=== PATIENT | female | born 1970 | race Caucasian/White ===

== ENCOUNTER 2016-07-17 10:47 | Emergency (ER) | payer OTHER ==
[2016-07-17 10:56] VITALS: RESP 18
--- NOTE | 2016-07-17 11:45 | ED ---
General Adult HPI - General Chief complaint: Recheck/Abnormal Lab/Rx Stated complaint: HEMMOROID Time Seen by Provider: 07/17/16 11:24 Source: patient Mode of arrival: ambulatory Limitations: no limitations - History of Present Illness Initial comments: 46 no did not patient presents to emergency department stay for evaluation of a hemorrhoid. Patient was seen at her primary care physician's office this morning on sent over for concerns of a thrombosed external hemorrhoid. Patient states that she started with perianal pain Wednesday. Patient states the pain is worsening since. Patient does have a history of hemorrhoids but has never had any issues with pain, or thrombosed hemorrhoid before. Patient has been using aloe, doing sitz baths, and taking Excedrin without relief of symptoms. She denies any inciting events, straining to go to the bathroom, or lifting heavy objects. Patient denies any constipation, diarrhea, abdominal pain , significant bleeding, fever, or chills. Patient denies any chest pain, shortness of breath, back pain, weakness, dizziness, dysuria, hematuria, urinary frequency, urinary urgency. - Related Data Home Medications Medication Instructions Recorded Confirmed [id number] [phone] 250 mg PO DAILY PRN 07/17/16 07/17/16 [Excedrin] Dextroamphetamine/Amphetamine 20 mg PO BID 07/17/16 07/17/16 [Adderall] Previous Rx's Medication Instructions Recorded Hydrocodone/Acetaminophen [Goshen 1 tab PO Q6HR PRN #20 tab 07/17/16 5-325] Hydrocortisone [Anusol-Hc] 1 applic RECTAL TID #30 gm 07/17/16 Lidocaine 5% Oint [Xylocaine 5% 1 applic TOPICAL TID #30 gm 07/17/16 Oint] Allergies Allergy/AdvReac Type Severity Reaction Status Date / Time codeine AdvReac Nausea & Verified 07/17/16 11:47 Vomiting tramadol AdvReac Nausea & Verified 07/17/16 11:47 Vomiting Review of Systems ROS Statement: Those systems with pertinent positive or pertinent negative responses have been documented in the HPI. ROS Other: All systems not noted in ROS Statement are negative. Past Medical History Past Medical History: No Reported History History of Any Multi-Drug Resistant Organisms: None Reported Past Surgical History: Tubal Ligation, Uterine Ablation Past Psychological History: Bipolar Smoking Status: Never smoker Past Alcohol Use History: Rare Past Drug Use History: None Reported General Exam Limitations: no limitations General appearance: alert, in no apparent distress Eye exam: Present: normal appearance, PERRL, EOMI. Absent: scleral icterus, conjunctival injection, periorbital swelling ENT exam: Present: normal exam, mucous membranes moist Neck exam: Present: normal inspection. Absent: tenderness, meningismus, lymphadenopathy Respiratory exam: Present: normal lung sounds bilaterally. Absent: respiratory distress, wheezes, rales, rhonchi, stridor Cardiovascular Exam: Present: regular rate, normal rhythm, normal heart sounds. Absent: systolic murmur, diastolic murmur, rubs, gallop, clicks GI/Abdominal exam: Present: soft, normal bowel sounds. Absent: distended, tenderness, guarding, rebound, rigid Rectal exam: Present: normal rectal tone, hemorrhoids (External, pink with areas of dark purple, roughly 1 cm diameter at 12:00), tenderness. Absent: normal inspection, decreased rectal tone Extremities exam: Present: normal inspection, full ROM, normal capillary refill. Absent: tenderness, pedal edema, joint swelling, calf tenderness Back exam: Present: normal inspection Neurological exam: Present: alert, oriented X3, CN II-XII intact Psychiatric exam: Present: normal affect, normal mood Skin exam: Present: warm, dry, intact, normal color. Absent: rash Course Vital Signs 07/17/16 10:52 Temperature 98.2 F Pulse Rate 84 Respiratory 18 Rate Blood Pressure 158/71 O2 Sat by Pulse 100 Oximetry Medical Decision Making - Medical Decision Making Present health in the patient presents to emergency department today for evaluation of a hemorrhoid after pain sent in by her primary care physician. Physical exam reveals an external partially thrombosed hemorrhoid. Extensive education regarding thrombosed hemorrhoids was given.. Patient will receive lidocaine and dermoplasty spray here in emergency department, as well as oral Goshen for pain control. Patient will be discharged with prescriptions for Anusol, lidocaine ointment, and Goshen for pain control. Patient educated regarding use of [id number]-buk-[id number] options such as Tucks pads and Recticare. He is instructed to follow up with general surgeon if symptoms don't start to improve over the next one to 2 days. Patient and check and to return for any new, worsening, or concerning symptoms. Patient verbalizes understanding and agrees with this plan. Disposition Clinical Impression: External thrombosed hemorrhoids Disposition: HOME SELF-CARE Condition: Stable Instructions: Thrombosed Hemorrhoid (ED) Additional Instructions: He denies [id number] product such as Tucks pads, Recticare. Continue doing sitz baths. Utilize lidocaine jelly and dermoblast spray as needed for discomfort. Take oral pain medications as needed for discomfort. Follow-up with general surgeon if symptoms do not start to improve in 1-2 days. Follow- up with primary care physician in one to 2 days for recheck. Prescriptions: Hydrocodone/Acetaminophen [Goshen 5-325] 1 tab PO Q6HR PRN #20 tab PRN Reason: Pain Hydrocortisone [Anusol-Hc] 1 applic RECTAL TID #30 gm Lidocaine 5% Oint [Xylocaine 5% Oint] 1 applic TOPICAL TID #30 gm Referrals: Bella Whiteside III, MD [Primary Care Provider] - 1-2 days Reggie Warner MD [STAFF PHYSICIAN] - 1-2 days Time of Disposition: 11:58 Decision Time: 12:01
[2016-07-17] MEDS ORDERED: HYDROcodone/APAP 5-325MG 1 EACH TAB PO STA (11:53)
[2016-07-17] MEDS ORDERED: BENZOCAINE/MENTHOL SPRAY 1 GM/SPRAY AEROSOL TOPICAL STA (11:54)
[2016-07-17] MEDS ORDERED: LIDOCAINE VISCOUS 2% 15 ML CUP MUCOUS MEM ONE (11:54)
[2016-07-17 12:31] VITALS: BP 136/84; PULSE 78; TEMP 97.8
== END 2016-07-17 12:31 | disposition home or self-care (01) ==
LOC: EC 10:47
DX: K64.5 Perianal venous thrombosis (principal); F31.9 Bipolar disorder, unspecified; Z88.5 Allergy status to narcotic agent; Z88.6 Allergy status to analgesic agent; Z79.899 Other long term (current) drug therapy
CPT/HCPCS: 99283

== ENCOUNTER 2018-12-31 16:01 | Inpatient (IN) | payer OTHER ==
--- NOTE | 2018-12-31 16:33 | ED ---
General Adult HPI - General Chief complaint: Recheck/Abnormal Lab/Rx Stated complaint: abn labs Time Seen by Provider: 12/31/18 16:10 Source: patient, RN notes reviewed Mode of arrival: ambulatory Limitations: no limitations - History of Present Illness Initial comments: Patient is a pleasant 48-year-old female presenting to the emergency Department with complaints of concerns regarding anemia. Patient states over the past few weeks she has had fatigue and exertional dyspnea. Patient did follow-up with her doctor and had blood work done. Hemoglobin returned at 6.7. Call was received from Dr. Whiteside regarding this. He did advise patient come to the emergency department. He does request admission and transfusion. Patient denies any black tarry stools. No bleeding. No vomiting. - Related Data Home Medications Medication Instructions Recorded Confirmed Dextroamphetamine/Amphetamine 20 mg PO DAILY 07/17/16 12/31/18 [Adderall] Cranberry Fruit Concentrate [Azo 250 mg PO DAILY 12/31/18 12/31/18 Cranberry] Dextroamphetamine/Amphetamine 20 mg PO DAILY@1500 PRN 12/31/18 12/31/18 [Adderall] FLUoxetine HCL [PROzac] 40 mg PO DAILY 12/31/18 12/31/18 Omeprazole 20 mg PO DAILY 12/31/18 12/31/18 lamoTRIgine [LaMICtal] 100 mg PO DAILY 12/31/18 12/31/18 Allergies Allergy/AdvReac Type Severity Reaction Status Date / Time codeine AdvReac Nausea & Verified 12/31/18 16:43 Vomiting tramadol AdvReac Nausea & Verified 12/31/18 16:43 Vomiting narcotis AdvReac Nausea & Uncoded 12/31/18 16:43 Vomiting Review of Systems ROS Statement: Those systems with pertinent positive or pertinent negative responses have been documented in the HPI. ROS Other: All systems not noted in ROS Statement are negative. Constitutional: Denies: fever Eyes: Denies: eye pain ENT: Denies: ear pain Respiratory: Denies: cough Cardiovascular: Denies: chest pain Endocrine: Denies: fatigue Gastrointestinal: Denies: abdominal pain, diarrhea, melena, hematochezia Genitourinary: Denies: dysuria Musculoskeletal: Denies: back pain Skin: Denies: rash Neurological: Denies: weakness Past Medical History Past Medical History: No Reported History History of Any Multi-Drug Resistant Organisms: None Reported Past Surgical History: Tubal Ligation, Uterine Ablation Past Psychological History: Bipolar Smoking Status: Never smoker Past Alcohol Use History: Rare Past Drug Use History: None Reported General Exam Limitations: no limitations General appearance: alert, in no apparent distress Head exam: Present: atraumatic Eye exam: Present: normal appearance, PERRL ENT exam: Present: normal oropharynx Neck exam: Present: normal inspection Respiratory exam: Present: normal lung sounds bilaterally Cardiovascular Exam: Present: regular rate, normal rhythm GI/Abdominal exam: Present: soft. Absent: tenderness Extremities exam: Present: normal inspection Neurological exam: Present: alert Psychiatric exam: Present: normal affect, normal mood Skin exam: Present: pallor Course Vital Signs 12/31/18 16:10 Temperature 98.1 F Pulse Rate 84 Respiratory 18 Rate Blood Pressure 127/76 O2 Sat by Pulse 100 Oximetry Medical Decision Making - Medical Decision Making Patient is aware of diagnosis and plan. Case was discussed with Dr. Ordaz, covering for Dr. Whiteside, who will admit. - Lab Data Result diagrams: 12/31/18 16:30 12/31/18 16:30 Lab Results 12/31/18 12/31/18 12/31/18 Range/Units 16:30 16:30 16:30 WBC 4.7 (3.8-10.6) k/uL RBC 3.17 L (3.80-5.40) m/uL Hgb 6.7 L* (11.4-16.0) gm/dL Hct 25.3 L (34.0-46.0) % MCV 79.7 L (80.0-100.0) fL MCH 21.3 L (25.0-35.0) pg MCHC 26.7 L (31.0-37.0) g/dL RDW 21.0 H (11.5-15.5) % Plt Count 542 H (150-450) k/uL Neutrophils % 59 % Lymphocytes % 29 % Monocytes % 4 % Eosinophils % 4 % Basophils % 1 % Neutrophils # 2.8 (1.3-7.7) k/uL Lymphocytes # 1.4 (1.0-4.8) k/uL Monocytes # 0.2 (0-1.0) k/uL Eosinophils # 0.2 (0-0.7) k/uL Basophils # 0.1 (0-0.2) k/uL Hypochromasia Marked Poikilocytosis Moderate Anisocytosis Moderate Microcytosis Slight PT 10.3 (9.0-12.0) sec INR 1.0 (<1.2) APTT 23.7 (22.0-30.0) sec Sodium 141 (137-145) mmol/L Potassium 4.1 (3.5-5.1) mmol/L Chloride 109 H (98-107) mmol/L Carbon Dioxide 21 L (22-30) mmol/L Anion Gap 11 mmol/L BUN 16 (7-17) mg/dL Creatinine 0.93 (0.52-1.04) mg/dL Est GFR (CKD-EPI)AfAm 84 (>60 ml/min/1.73 sqM) Est GFR (CKD-EPI)NonAf 73 (>60 ml/min/1.73 sqM) Glucose 112 H (74-99) mg/dL Calcium 9.5 (8.4-10.2) mg/dL Total Bilirubin 0.2 (0.2-1.3) mg/dL AST 21 (14-36) U/L ALT 17 (9-52) U/L Alkaline Phosphatase 57 (38-126) U/L Total Protein 7.1 (6.3-8.2) g/dL Albumin 4.3 (3.5-5.0) g/dL Blood Type Blood Type Confirm Blood Type Recheck Bld Type Recheck Status Antibody Screen Spec Expiration Date 12/31/18 12/31/18 Range/Units 16:30 16:32 WBC (3.8-10.6) k/uL RBC (3.80-5.40) m/uL Hgb (11.4-16.0) gm/dL Hct (34.0-46.0) % MCV (80.0-100.0) fL MCH (25.0-35.0) pg MCHC (31.0-37.0) g/dL RDW (11.5-15.5) % Plt Count (150-450) k/uL Neutrophils % % Lymphocytes % % Monocytes % % Eosinophils % % Basophils % % Neutrophils # (1.3-7.7) k/uL Lymphocytes # (1.0-4.8) k/uL Monocytes # (0-1.0) k/uL Eosinophils # (0-0.7) k/uL Basophils # (0-0.2) k/uL Hypochromasia Poikilocytosis Anisocytosis Microcytosis PT (9.0-12.0) sec INR (<1.2) APTT (22.0-30.0) sec Sodium (137-145) mmol/L Potassium (3.5-5.1) mmol/L Chloride (98-107) mmol/L Carbon Dioxide (22-30) mmol/L Anion Gap mmol/L BUN (7-17) mg/dL Creatinine (0.52-1.04) mg/dL Est GFR (CKD-EPI)AfAm (>60 ml/min/1.73 sqM) Est GFR (CKD-EPI)NonAf (>60 ml/min/1.73 sqM) Glucose (74-99) mg/dL Calcium (8.4-10.2) mg/dL Total Bilirubin (0.2-1.3) mg/dL AST (14-36) U/L ALT (9-52) U/L Alkaline Phosphatase (38-126) U/L Total Protein (6.3-8.2) g/dL Albumin (3.5-5.0) g/dL Blood Type O Negative Blood Type Confirm O Negative Blood Type Recheck No Previous Record Bld Type Recheck Status CABO Indicated Antibody Screen NEGATIVE Spec Expiration Date 01/03/2019 - 2330 - Radiology Data Radiology results: image reviewed (Chest x-ray shows no acute process. There are some calcified mediastinal lymph nodes.) Disposition Clinical Impression: Anemia Disposition: ADMITTED IP TO THIS HOSP Is patient prescribed a controlled substance at d/c from ED?: No Referrals: Bella Whiteside III, MD [Primary Care Provider] - 1-2 days Decision Time: 18:19
[2018-12-31 16:38] LABS: Anisocytosis Moderate; Basophils # (A) 0.1 k/uL (0-0.2); Basophils % (A) 1 %; Eosinophils # (A) 0.2 k/uL (0-0.7); Eosinophils % (A) 4 %; HCT 25.3 % (34.0-46.0); Hypochromasia Marked; Lymphocytes # (A) 1.4 k/uL (1.0-4.8); Lymphocytes % (A) 29 %; MCH 21.3 pg (25.0-35.0); MCHC 26.7 g/dL (31.0-37.0); MCV 79.7 fL (80.0-100.0); Mean Platelet Volume 7.7; Microcytosis Slight; Monocytes # (A) 0.2 k/uL (0-1.0); Monocytes % (A) 4 %; Neutrophils # (A) 2.8 k/uL (1.3-7.7); Neutrophils % (A) 59 %; Platelet Count 542 k/uL (150-450); Poikilocytosis Moderate; RBC 3.17 m/uL (3.80-5.40); WBC 4.7 k/uL (3.8-10.6)
[2018-12-31 16:40] LABS: HGB 6.7 gm/dL (11.4-16.0)
[2018-12-31 16:49] LABS: Partial Thromboplastin Time 23.7 sec (22.0-30.0); Prothrombin Time 10.3 sec (9.0-12.0)
[2018-12-31 16:52] LABS: Albumin 4.3 g/dL (3.5-5.0); Calcium 9.5 mg/dL (8.4-10.2); Potassium 4.1 mmol/L (3.5-5.1); Total Bilirubin 0.2 mg/dL (0.2-1.3); Total Protein 7.1 g/dL (6.3-8.2)
--- NOTE | 2018-12-31 17:22 | XR ---
EXAMINATION TYPE: XR chest 1V portable DATE OF EXAM: 12/31/2018 Comparison: None Clinical History: 28-year-old female with dyspnea, shortness of breath, anemic Findings: The cardiomediastinal silhouette, aorta, and pulmonary vasculature are within normal limits. Calcifi ed AP window lymph nodes suggest prior granulomatous disease. Strandy bibasilar atelectasis. No conso lidation or pleural effusion. Impression: Calcified mediastinal lymph nodes suggest prior granulomatous disease. No acute cardiopulmonary proc ess.
[2018-12-31] MEDS ORDERED: NALOXONE 0.4 MG/ML 1 ML VIAL IV PRN (18:20)
--- NOTE | 2018-12-31 22:19 | HP ---
HISTORY AND PHYSICAL CHIEF COMPLAINT: Anemia. HISTORY OF PRESENT ILLNESS: This 48-year-old woman with a past medical history of hemorrhoids, history of uterine ablation, tubal ligation, history of bipolar, being followed by Dr. Whiteside in the outpatient setting, not feeling well over the past several days. Patient tired and weak. Patient experiencing shortness of breath on minimal activity. Patient has diffuse myalgia. Dr. Whiteside evaluated the patient in the outpatient setting. Patient's hemoglobin 6.1, and the patient was asked to come to the [facility] Emergency Room for further evaluation and treatment. There is no history of fever, rigors, or chills. No history of headache, loss of consciousness, seizures, as mentioned earlier, no hematochezia, melena, hematemesis at this time. PAST MEDICAL HISTORY: History of hemorrhoids, history of tubal ligation, uterine ablation, bipolar. MEDICATIONS: Prior to admission include home medications are: 1. Lamictal 100 mg p.o. daily. 2. Omeprazole 20 mg daily. 3. Prozac 40 mg daily. 5. Azo cranberry 250 mg daily. ALLERGIES: CODEINE, ULTRAM. NARCOTICS. FAMILY HISTORY: No history of heart disease or strokes in the family. SOCIAL HISTORY: No history of smoking. No history of alcohol intake. REVIEW OF SYSTEMS: ENT: No diminished vision. No diminished hearing. Cardiovascular: No angina. No palpitations. Respiration: No cough. GI as mentioned earlier. no dysuria. Nervous system: As mentioned earlier. ALLERGY/IMMUNOLOGY: No asthma or hayfever. MUSCULOSKELETAL as mentioned earlier. HEMATOLOGY/ONCOLOGY: No history of anemia. ENDOCRINE: No history of diabetes or hypothyroidism. CONSTITUTIONAL: As mentioned earlier. DERMATOLOGY: Negative. RHEUMATOLOGY negative. PSYCHIATRY as mentioned earlier. PHYSICAL EXAMINATION: Alert and oriented x3. Pulse is 84. Blood pressure 127/76. Respiration 18, temperature 98.1. Pulse ox 100 percent on room air. HEENT: Conjunctivae pale. Oral mucosa moist. NECK is jugular venous distention at the root of the neck. CARDIOVASCULAR SYSTEM: S1, S2. Ejection systolic murmur present. No S3, no S4. RESPIRATORY: Breath sounds diminished in the bases. No rhonchi. No crackles. ABDOMEN: Soft, nontender. No mass palpable. No ascites. LEGS: No edema. No swelling. NERVOUS SYSTEM: Higher functions as mentioned earlier. Moves all four limbs. No focal motor or sensory deficits. LYMPHATICS: No lymph nodes palpable in the neck, axillae or groin. SKIN: No ulcer, rash or bleeding. JOINTS: No active deforming arthropathy. LABS: WBC 4.7, hemoglobin 6.8, MCV 79.7. Other labs noted. ASSESSMENT: 1. Anemia possibly acute microcytic in nature. Rule out gastrointestinal blood loss. 2. History of hemorrhoids. 3. History of tubal ligation. 4. History of uterine ablation. 5. History of bipolar. RECOMMENDATIONS AND DISCUSSION: This 48-year-old woman who presented with multiple complex medical issues, we will monitor the patient closely, continue the current medications, management and symptomatic treatment. I recommend monitor hemoglobin closely and 1 unit transfusion which was ordered by the ER. Otherwise I would also recommend full iron evaluation. Closely monitor. Prognosis guarded. Further recommendations to follow. A copy of this dictation being forwarded to Dr. Whiteside who is the primary physician. We will transfuse 1 unit. See orders for details and we will wait for the further labs to come back. MMODL / IJN: [id number] / MTDD
[2019-01-01 00:21] VITALS: BMI 24.3
[2019-01-01 07:51] LABS: African American GFR (CKD) >90 (>60 ml/min/1.73 sqM); Anion Gap 9 mmol/L; Blood Urea Nitrogen 15 mg/dL (7-17); Calcium 9.3 mg/dL (8.4-10.2); Carbon Dioxide 22 mmol/L (22-30); Chloride 108 mmol/L (98-107); Glucose 94 mg/dL (74-99); Potassium 4.2 mmol/L (3.5-5.1); Sodium 139 mmol/L (137-145)
[2019-01-01 07:54] LABS: Anisocytosis Slight; Basophils # (A) 0.1 k/uL (0-0.2); Basophils % (A) 2 %; Eosinophils # (A) 0.4 k/uL (0-0.7); Eosinophils % (A) 7 %; HGB 7.7 gm/dL (11.4-16.0); Hypochromasia Marked; Lymphocytes # (A) 1.7 k/uL (1.0-4.8); Lymphocytes % (A) 33 %; MCH 24.6 pg (25.0-35.0); MCHC 29.9 g/dL (31.0-37.0); MCV 82.3 fL (80.0-100.0); Mean Platelet Volume 7.6; Microcytosis Slight; Monocytes # (A) 0.3 k/uL (0-1.0); Monocytes % (A) 5 %; Neutrophils # (A) 2.6 k/uL (1.3-7.7); Neutrophils % (A) 51 %; Platelet Count 447 k/uL (150-450); Poikilocytosis Marked; RBC 3.15 m/uL (3.80-5.40); RDW 19.9 % (11.5-15.5); WBC 5.1 k/uL (3.8-10.6)
[2019-01-01] MEDS: SODIUM CHLORIDE 0.9% 1,000 ML IV SCH ×2 (09:20→21:14)
[2019-01-01] MEDS: PANTOPRAZOLE 40 MG/10 ML VIAL IV SCH (09:35)
[2019-01-01] MEDS: ACETAMINOPHEN TAB 325 MG TAB PO PRN (09:35)
[2019-01-01] MEDS: FLUoxetine HCL 20 MG CAP PO SCH (11:13)
[2019-01-01] MEDS: lamoTRIgine 100 MG TAB PO SCH (11:13)
[2019-01-01] MEDS ORDERED: ASPIRIN-ACET-CAFF 250-250-65MG 1 EACH TAB PO PRN (11:21)
[2019-01-01] MEDS: LORazepam 2 MG/ML INJ IV PRN ×2 (12:00→21:15)
--- NOTE | 2019-01-01 15:16 | CONS ---
CONSULTATION DATE OF DICTATION: January 01, 2019. REQUESTING PHYSICIAN: Dr. Ordaz. REASON FOR CONSULTATION: Microcytic hypochromic anemia. HISTORY OF PRESENT ILLNESS: The patient is a 48-year-old pleasant white female admitted to the hospital with severe symptomatic anemia, progressive weakness and shortness of breath for the last 2 weeks duration. She went to see Dr. Whiteside on an outpatient basis and had labs done and was called by him yesterday with a hemoglobin of 6.1. Advised to go to the emergency room. She had repeat CBC done. Hemoglobin was 6.7 g/dL, received 1 unit of blood transfusion. She is feeling better. Denies any abdominal pain. Reports no nausea vomiting. No rectal bleeding or melena. She has been taking Excedrin on and off for chronic headaches. No prior history of peptic ulcer disease. Last colonoscopy approximately 10 years ago. She has uterine ablation for menorrhagia and for the last 10 years has no menstrual cycles. PAST MEDICAL HISTORY: Significant for GERD and IBS. PAST SURGICAL HISTORY: Uterine ablation, tubal ligation. MEDICATIONS: At home: Lamictal, Omeprazole, Prozac. ALLERGIES: TO CODEINE, ULTRAM, NARCOTICS. SOCIAL HISTORY: No smoking or alcohol use. FAMILY HISTORY: Unremarkable. REVIEW OF SYSTEMS: Cardiopulmonary: No chest pain, shortness of breath. Genitourinary: No dysuria or hematuria. Musculoskeletal unremarkable. Skin unremarkable. Endocrine unremarkable. Psychiatric unremarkable. Neurology unremarkable. Hematology anemia. ENT/vision unremarkable. Constitutional: No recent weight loss. No fever, chills, night sweats. PHYSICAL EXAMINATION: Blood pressure is 117/76, pulse 74, temperature 98.6. HEENT examination unremarkable. Conjunctivae pink. Sclerae anicteric. Oral cavity no lesions. NECK: No JVD or lymph node enlargement. CHEST: Clear to auscultation. HEART: Regular rate and rhythm. ABDOMEN: Soft. Bowel sounds are positive. No organomegaly. EXTREMITIES: No pedal edema. SKIN no rashes. NEUROLOGIC: Alert and oriented x3. No focal deficits. LABS: Done at the time of admission to the hospital: Hemoglobin 6.7, MCV 79, WBC, platelets normal. Basic metabolic panel is within normal limits. IMPRESSION: Hypochromic microcytic anemia, most likely related to occult gastrointestinal blood loss. Clinically no evidence of active ongoing bleeding. The patient has history of uterine ablation for menorrhagia and has had no menstrual cycle for the last 10 years. She is status post 1 unit of blood transfusion and hemoglobin this morning is 7.7 g/dL. RECOMMENDATION: I had a lengthy discussion with the patient regarding further workup of microcytic hypochromic anemia, which will include an upper endoscopy as well as a colonoscopy and she is agreeable to it. These procedures will be scheduled for tomorrow. In the meantime, monitor CBC on a daily basis and follow with you closely during her hospital stay. Thank you for this consultation. MMODL / IJN: [id number] /
[2019-01-01] MEDS ORDERED: PEG 3350-NA SULF,BICARB,CL/KCL 4,000 ML BOTTLE PO ONE (17:00)
--- NOTE | 2019-01-01 21:19 | PN ---
PROGRESS NOTE DATE OF SERVICE: 01/01/2019 This 48-year-old woman who was admitted with anemia, possibly acute microcytic in nature, being evaluated for GI bleed. Dr. Rodríguez is planning colonoscopy and EGD tomorrow. No chest pain. No palpitations. No fever. After 1 unit of transfusion hemoglobin improved to 7.7 from 6.7. Iron studies are pending at this time. No chest pain. No palpitations. No fever. EXAM: Alert and oriented x3. Pulse 92, blood pressure 113/81, respiration 18, temperature 98 degrees, pulse ox 99% on room air. HEENT: Conjunctivae normal. Oral mucosa moist. NECK: No jugular venous distention. No lymph node enlargement. CARDIOVASCULAR: S1, S2. RESPIRATORY: Diminished breath sounds at the bases. No rhonchi, no crackles. ABDOMEN: Soft, nontender. LEGS: No swelling. NERVOUS SYSTEM: No focal deficits. LABS: WBC 5.2, hemoglobin 7.7. ASSESSMENT: 1. Anemia possibly acute microcytic anemia. Rule out gastrointestinal blood-loss anemia. 2. History of hemorrhoids. 3. History of tubal ligation. 4. History uterine ablation. 5. History of bipolar. RECOMMENDATIONS AND DISCUSSION: Recommend to continue current medications, continue to monitor, continue symptomatic treatment. Otherwise, at this time recommend repeat CBC, gastroenterology evaluation. Otherwise, I would recommend to continue with current medications and EGD endoscopy per Dr. Rodríguez. Further recommendations to follow. MMODL / IJN: [id number] /
[2019-01-02 07:33] LABS: Anisocytosis Moderate; Basophils # (A) 0.1 k/uL (0-0.2); Basophils % (A) 1 %; Eosinophils # (A) 0.2 k/uL (0-0.7); Eosinophils % (A) 3 %; HCT 26.9 % (34.0-46.0); HGB 7.8 gm/dL (11.4-16.0); Hypochromasia Marked; Lymphocytes # (A) 1.8 k/uL (1.0-4.8); Lymphocytes % (A) 32 %; MCHC 29.2 g/dL (31.0-37.0); MCV 82.1 fL (80.0-100.0); Microcytosis Slight; Monocytes # (A) 0.4 k/uL (0-1.0); Monocytes % (A) 6 %; Neutrophils # (A) 3.1 k/uL (1.3-7.7); Neutrophils % (A) 55 %; Platelet Count 420 k/uL (150-450); Poikilocytosis Marked; RBC 3.27 m/uL (3.80-5.40); RDW 20.1 % (11.5-15.5); WBC 5.6 k/uL (3.8-10.6)
[2019-01-02 07:34] LABS: African American GFR (CKD) >90 (>60 ml/min/1.73 sqM); Anion Gap 9 mmol/L; Blood Urea Nitrogen 9 mg/dL (7-17); Carbon Dioxide 23 mmol/L (22-30); Chloride 110 mmol/L (98-107); Glucose 97 mg/dL (74-99); Sodium 142 mmol/L (137-145)
[2019-01-02] MEDS: FLUoxetine HCL 20 MG CAP PO SCH ×2 (08:09→17:34)
[2019-01-02] MEDS: lamoTRIgine 100 MG TAB PO SCH (08:10)
[2019-01-02] MEDS: PANTOPRAZOLE 40 MG/10 ML VIAL IV SCH (08:17)
[2019-01-02 09:57] LABS: Iron Saturation 2.53 (12.00-45.00)
--- NOTE | 2019-01-02 12:01 | ECHOF ---
Referral Reason:sob MEASUREMENTS -------- HEIGHT: 162.6 cm WEIGHT: 64.4 kg BP: 132/82 RVIDd: 2.7 cm (< 3.3) IVSd: 1.1 cm (0.6 - 1.1) LVIDd: 3.9 cm (3.9 - 5.3) LVPWd: 1.0 cm (0.6 - 1.1) IVSs: 1.4 cm LVIDs: 3.2 cm LVPWs: 1.4 cm LA Diam: 4.1 cm (2.7 - 3.8) LAESV Index (A-L): 31.07 ml/m Ao Diam: 2.5 cm (2.0 - 3.7) AV Cusp: 1.6 cm (1.5 - 2.6) LA Diam: 3.2 cm (2.7 - 3.8) MV EXCURSION: 14.881 mm (> 18.000) MV EF SLOPE: 77 mm/s (70 - 150) EPSS: 0.2 cm MV E Chidi: 1.02 m/s MV DecT: 240 ms MV A Chidi: 0.92 m/s MV E/A Ratio: 1.11 RAP: 5.00 mmHg RVSP: 24.94 mmHg FINDINGS -------- Sinus rhythm. This was a technically good study. LV size, wall thickness and systolic function are normal, with an EF greater than 55%. The left esperanza tricular size is normal. The diastolic filling pattern is normal for the age of the patient 10.83. The right ventricle is normal in size. LA is midly dilated 29-33ml/m2. The right atrial size is normal. Interatrial and interventricular septum intact. The aortic valve is trileaflet, and appears structurally normal. No aortic stenosis or regurgitation. The mitral valve is normal. Mild mitral regurgitation is present. Mild tricuspid regurgitation present. There is no evidence of pulmonary hypertension. The right v entricular systolic pressure, as measured by Doppler, is 24.94mmHg. Trace/mild (physiologic) pulmonic regurgitation. The aortic root size is normal. There is no pericardial effusion. CONCLUSIONS -------- 1. Sinus rhythm. 2. This was a technically good study. 3. LV size, wall thickness and systolic function are normal, with an EF greater than 55%. 4. The left ventricular size is normal. 5. The diastolic filling pattern is normal for the age of the patient 10.83 6. LA is midly dilated 29-33ml/m2. 7. The aortic valve is trileaflet, and appears structurally normal. No aortic stenosis or regurgitati on. 8. The mitral valve is normal. 9. Mild mitral regurgitation is present. 10. Mild tricuspid regurgitation present. 11. There is no evidence of pulmonary hypertension. 12. Trace/mild (physiologic) pulmonic regurgitation. 13. The aortic root size is normal. 14. There is no pericardial effusion. PEARL FISHERMAN: Kelli Gil RDCS
[2019-01-02] MEDS: LORazepam 2 MG/ML INJ IV PRN ×3 (12:27→23:02)
[2019-01-02] MEDS ORDERED: LIDOCAINE 1% INJ 10MG/ML (20 ML MDV) ONE (14:04)
[2019-01-02] MEDS ORDERED: ONDANSETRON 4 MG/2 ML VIAL ONE (14:04)
[2019-01-02] MEDS ORDERED: PROPOFOL 10 MG/ML 20 ML VIAL IV ONE (14:04)
[2019-01-02] MEDS ORDERED: IV FLUID CONTINUATION 300 ML IV ONE (14:10)
--- NOTE | 2019-01-02 14:32 | P.PCN ---
Date of Procedure: 01/02/19 Procedure(s) Performed: Brief history: Patient is a pleasant 48-year-old white female, admitted hospital with severe symptomatic anemia and hemoglobin of 6.1 g/dL. She received 1 unit of blood transfusion. She denies any GI symptoms. She is scheduled scheduled for an elective upper endoscopy as well as colonoscopy as a part of evaluation of iron deficiency anemia. Procedure performed: Esophagogastroduodenoscopy with biopsy Colonoscopy Preoperative diagnosis: Iron deficiency anemia Anesthesia: MAC Procedure: After informed consent was obtained from the patient was brought into the endoscopy unit and IV sedation was administered by anesthesia under continuous monitoring. Initially upper endoscopy was done. The Olympus GF 160 video endoscope was inserted inserted into the mouth and esophagus intubated without any difficulty and was gradually advanced into the stomach and duodenum and carefully examined. The bulb and second part of the duodenum appeared normal. Biopsies were done from the duodenum. The scope was then withdrawn into the stomach adequately insufflated with air and upon careful examination there was a 2 cm pyloric channel ulcer identified with no active bleeding. Biopsies were done from the margin of the ulcer. The antrum and body, cardia and fundus appeared normal. The scope was then withdrawn into the esophagus. The GE junction was located at 40 cm to the incisors. It appeared regular with no erythema erosions or ulcerations. Rest of the esophagus appeared normal. Patient tolerated the procedure well. At this time the patient continued to remain sedation. Initial digital rectal examination was normal. Olympus CF 160 video colonoscope was then inserted into the rectum and gradually advanced to the cecum without any difficulty. Careful examination was performed as the scope was gradually being withdrawn. The prep was excellent. The cecum, ascending colon, transverse colon, descending colon, sigmoid colon and rectum appeared normal. Retroflexion was performed in the rectum and no lesions were noted. Patient tolerated the procedure well. Impression: 1. Upper endoscopy revealed 2 cm deep pyloric channel ulcer with no active bleeding 2. Colonoscopy was essentially within normal limits with no evidence of colitis or colorectal neoplasia Recommendations: Findings of this examination were discussed with the patient as well as her family. She was advised to follow with the biopsy results. She will continue with Protonix 40 mg daily and avoid NSAIDs.
[2019-01-02] MEDS ORDERED: SODIUM CHLORIDE 0.9% 500 ML IV ONE (14:33)
[2019-01-02] MEDS ORDERED: NON FORMULARY DRUG (Dextroamphetamine/Amphetamine [Adderall] 20 MG) PO PRN (15:00)
[2019-01-02] MEDS ORDERED: Acetaminophen-Codeine 300-30mg TAB PO PRN (15:00)
[2019-01-02] MEDS: SUCRALFATE 1 GM TAB PO SCH ×2 (17:34→22:00)
--- NOTE | 2019-01-02 19:02 | PN ---
PROGRESS NOTE DATE OF SERVICE: 01/02/2019. This 48-year-old woman who was admitted with anemia, possibly microcytic anemia, was scheduled for EGD and colonoscopy today by Dr. Rodríguez. The patient received one unit of transfusion. The EGD showed 2 cm deep pyloric channel ulcers with no active bleeding. Colonoscopy was essentially within normal limits; no evidence of neoplasia at this time. The patient is being closely monitored. No chest pain. No palpitations. No fever. PHYSICAL EXAMINATION: Alert and oriented x3. Pulse 75, blood pressure 124/71, respirations 16, temperature 98.2. HEENT: Conjunctivae pale. NECK: No jugular venous distention. CARDIOVASCULAR SYSTEM: S1, S2 muffled. RESPIRATORY SYSTEM: Breath sounds diminished at the bases. No rhonchi. No crackles. ABDOMEN: Soft, non-tender. LEGS: No edema. No swelling. NERVOUS SYSTEM: No focal deficit. LABS: Hemoglobin 7.8. Other labs are normal. Urine is normal. ASSESSMENT: 1. Anemia, possibly iron deficiency; acute microcytic anemia, possibly secondary from peptic ulcer disease and deep pyloric channel ulcers in the EGD. 2. History of hemorrhoids. 3. History of tubal ligation. 4. History of uterine ablation. 5. History of bipolar. RECOMMENDATIONS AND DISCUSSION: I recommend to continue current medications, continue with the monitoring, symptomatic treatment. Repeat labs tomorrow. Monitor closely. Proton pump inhibitors. Prognosis guarded because of multiple complex medical issues. We will stop the Excedrin currently. Further recommendations to follow. MMODL / IJN: [id number] /
[2019-01-02] MEDS: SODIUM CHLORIDE 0.9% 1,000 ML IV SCH (20:33)
[2019-01-02] MEDS ORDERED: BUTALB/APAP/CAFF 50-325-40MG TAB PO STA (21:53)
[2019-01-03] MEDS: LORazepam 2 MG/ML INJ IV PRN (02:55)
[2019-01-03 07:47] LABS: African American GFR (CKD) >90 (>60 ml/min/1.73 sqM); Anion Gap 11 mmol/L; Blood Urea Nitrogen 9 mg/dL (7-17); Calcium 9.4 mg/dL (8.4-10.2); Carbon Dioxide 21 mmol/L (22-30); Chloride 108 mmol/L (98-107); Glucose 102 mg/dL (74-99); Potassium 4.1 mmol/L (3.5-5.1); Sodium 140 mmol/L (137-145)
[2019-01-03 08:03] LABS: Anisocytosis Slight; Basophils # (A) 0.1 k/uL (0-0.2); Basophils % (A) 1 %; Eosinophils # (A) 0.2 k/uL (0-0.7); Eosinophils % (A) 2 %; HCT 27.6 % (34.0-46.0); Hypochromasia Marked; Lymphocytes # (A) 1.7 k/uL (1.0-4.8); Lymphocytes % (A) 20 %; MCH 23.8 pg (25.0-35.0); MCHC 28.9 g/dL (31.0-37.0); MCV 82.4 fL (80.0-100.0); Mean Platelet Volume 7.1; Microcytosis Slight; Monocytes # (A) 0.4 k/uL (0-1.0); Monocytes % (A) 5 %; Neutrophils # (A) 6.4 k/uL (1.3-7.7); Neutrophils % (A) 72 %; Platelet Count 402 k/uL (150-450); Poikilocytosis Marked; RBC 3.34 m/uL (3.80-5.40); RDW 19.6 % (11.5-15.5); WBC 8.9 k/uL (3.8-10.6)
[2019-01-03] MEDS: lamoTRIgine 100 MG TAB PO SCH (08:05)
[2019-01-03] MEDS: SUCRALFATE 1 GM TAB PO SCH (08:05)
[2019-01-03] MEDS: PANTOPRAZOLE 40 MG/10 ML VIAL IV SCH (08:05)
[2019-01-03] MEDS: FLUoxetine HCL 20 MG CAP PO SCH (08:06)
[2019-01-03] MEDS: ACETAMINOPHEN TAB 325 MG TAB PO PRN (08:06)
[2019-01-03 08:41] VITALS: TEMP 97.6
[2019-01-03] MEDS ORDERED: NON FORMULARY DRUG (Dextroamphetamine/Amphetamine [Adderall] 20 MG) PO SCH (09:00)
[2019-01-03 11:03] VITALS: BP 128/74; PULSE 81; RESP 20
--- NOTE | 2019-01-04 00:39 | DS ---
DISCHARGE SUMMARY DATE OF SERVICE: 01/03/2019. FINAL DIAGNOSES: 1. Anemia, possibly iron deficiency. Acute microcytic anemia possibly secondary from peptic ulcer disease and deep pyloric channel ulcer on the EGD. 2. History of hemorrhoids. 3. History of tubal ligation. 4. History uterine ablation. 5. History of bipolar. 6. History of headache, possible migraine. DISCHARGE DISPOSITION: Patient will be discharged in stable condition with guarded prognosis. GI cleared the patient for discharge. HISTORY OF PRESENT ILLNESS: This 48-year-old with a past medical history of multiple medical problems admitted with significant anemia. Hemoglobin 6.7. Patient's EGD/colonoscopy done by Dr. Rodríguez showed pyloric channel ulcer and the patient treated symptomatically. Patient improved significantly. Hemoglobin more stable around 8. The patient had received 1 unit transfusion. The iron studies are showing ferritin of 6.4, iron saturation 2.53, TIBC 393, iron was 10. The patient will be discharged in stable condition with guarded prognosis. On exam, vitals are stable. Cardiovascular: S1, S2. Abdomen soft. Nervous System: No focal deficits. DISCHARGE ADVICE AND MEDICATIONS: 1. Diet is cardiac diet. 2. Activity limited until followup. 3. Follow up with Dr. Whiteside in 2-3 days. 4. Follow up with Dr. Rodríguez as recommended. DISCHARGE MEDICATIONS: 1. Adderall as before 20 mg daily and 3:00 pm. 2. Cranberry as before. 3. Lamictal 100 mg p.o. daily. 4. Prozac 40 mg. 5. Carafate 1 g a.c. and q.h.s. 6. Fioricet 1 tab 1 capsule p.o. q.8 hours. 7. Protonix 40 mg b.i.d. 8. Avoid aspirin and as well as NSAIDs. Once again, the patient will be discharged in stable condition with guarded prognosis. MMODL / IJN: [id number] /
== END 2019-01-03 12:05 | disposition home or self-care (01) | DRG 384 ==
LOC: EC 16:01 → 4SSUR 19:06 → 3NMEDONC 01-02 11:25 → OBSVTOIN 01-02 15:26
PROVIDERS: ADMIT Hospitalist; ATTEND Hospitalist
PROC: 30233N1 Transfusion of Nonautologous Red Blood Cells into Peripheral Vein, Percutaneous Approach (ICD-10-PCS; 2018-12-31)
PROC: 0DJD8ZZ Inspection of Lower Intestinal Tract, Via Natural or Artificial Opening Endoscopic (ICD-10-PCS; 2019-01-02)
PROC: 0DB98ZX Excision of Duodenum, Via Natural or Artificial Opening Endoscopic, Diagnostic (ICD-10-PCS; principal; 2019-01-02 08:45)
PROC: 0DB78ZX Excision of Stomach, Pylorus, Via Natural or Artificial Opening Endoscopic, Diagnostic (ICD-10-PCS; 2019-01-02 08:45)
DX: K25.9 Gastric ulcer, unspecified as acute or chronic, without hemorrhage or perforation (principal); D50.9 Iron deficiency anemia, unspecified; G43.909 Migraine, unspecified, not intractable, without status migrainosus; M79.10 Myalgia, unspecified site; K21.9 Gastro-esophageal reflux disease without esophagitis; K58.9 Irritable bowel syndrome, unspecified; F31.9 Bipolar disorder, unspecified; Z79.899 Other long term (current) drug therapy; Z98.890 Other specified postprocedural states; Z98.51 Tubal ligation status; Z88.5 Allergy status to narcotic agent
CPT/HCPCS: 36415; 43239; 45378; 71045; 80048; 80053; 81025; 82728; 83540; 83550; 85025; 85610; 85730; 86850; 86900; 86901; 86920; 88305; 93306; 99285

== ENCOUNTER → 2022-04-21 | Outpatient (CLI) | payer OTHER ==
--- NOTE | 2022-04-22 17:30 | MM ---
Reason for Exam: Screening (asymptomatic). Last mammogram was performed 10 year(s) and 3 month(s) ago. Patient History: Menarche at age 12. First Full-Term at age 21. Postmenopausal. Patient has history of breast feeding. Patient used Hormonal Contraceptives for 8 years. Risk Values: Edna 5 year model risk: 1.0%. NCI Lifetime model risk: 7.7%. Prior Study Comparison: 08/27/2004 Screening Mammogram, [facility]. 01/15/2012 Bilateral Screening Mammogram, [facility]. 02/08/2012 Bilateral Diagnostic Mammogram, [facility]. Tissue Density: The breast tissue is heterogeneously dense. This may lower the sensitivity of mammography. Findings: Analyzed By CAD. Pattern appears symmetrical. Benign vascular calcifications present bilaterally. No suspicious groups of microcalcifications, spiculated or lobular masses, architectural distortion or other secondary signs of malignancy are mammographically apparent. Overall Assessment: Benign, BI-RAD 2 Management: Screening Mammogram of both breasts in 1 year. A negative mammogram report should not preclude additional follow up of suspicious palpable abnormalities. Patient should continue monthly self breast exam. A clinical breast exam by your physician is recommended on an annual basis and results should be correlated with mammographic findings. Electronically signed and approved by: Singh Farrar D.O. Radiologis
== END | disposition home or self-care (01) ==
LOC: RADMAMWWP 09:59
PROVIDERS: ATTEND Family Medicine
DX: Z12.31 Encounter for screening mammogram for malignant neoplasm of breast (principal); Z78.0 Asymptomatic menopausal state
CPT/HCPCS: 77063; 77067

== ENCOUNTER → 2023-05-03 | Outpatient (CLI) | payer OTHER ==
--- NOTE | 2023-05-04 13:11 | MM ---
Reason for Exam: Screening (asymptomatic). Last screening mammogram was performed 12 month(s) ago. Patient History: Menarche at age 12. First Full-Term at age 21. Postmenopausal. Patient has history of breast feeding. Patient used Hormonal Contraceptives for 8 years. Risk Values: Edna 5 year model risk: 1.0%. NCI Lifetime model risk: 7.5%. Prior Study Comparison: 01/15/2012 Bilateral Screening Mammogram, [facility]. 02/08/2012 Bilateral Diagnostic Mammogram, [facility]. 04/21/2022 Bilateral MG 3D screening mammo w/cad, [facility]. Tissue Density: The breast tissue is heterogeneously dense. This may lower the sensitivity of mammography. Findings: Analyzed By CAD. There is no suspicious group of microcalcifications or new suspicious mass. Overall Assessment: Negative, BI-RAD 1 Management: Screening Mammogram of both breasts in [address] [facility] will attempt to contact patient to return for supplemental views and ultrasound if indicated. Patient should continue monthly self-breast exams. A clinical breast exam by your physician is recommended on an annual basis. This exam should not preclude additional follow-up of suspicious palpable abnormalities. Note on Edna scores and lifetime risk: 1. A Edna score greater than 3% is considered moderate risk. If this is the case, consider specialist referral to assess eligibility for a risk reducing agent. 2. If overall lifetime risk for the development of breast cancer is 20% or higher, the patient may qualify for future screening with alternating mammogram and breast MRI. Electronically signed and approved by: Ceasar Kim DO
== END | disposition home or self-care (01) ==
LOC: RADMAMWWP 12:42
DX: Z12.31 Encounter for screening mammogram for malignant neoplasm of breast (principal); Z78.0 Asymptomatic menopausal state
CPT/HCPCS: 77063; 77067

== ENCOUNTER → 2024-01-31 | Outpatient (CLI) | payer OTHER ==
--- NOTE | 2024-01-31 09:12 | MR ---
EXAMINATION TYPE: MRI right shoulder without IV contrast DATE OF EXAM: 01/31/2024 COMPARISON: None HISTORY: Pain, decreased range of motion TECHNIQUE: Multiplanar, multisequence imaging of the right shoulder is performed without contrast. FINDINGS: Rotator Cuff: Ovoid focus of hypointense T1/T2 signal within the supraspinatus tendon appearing 7 mm without significant surrounding edema most consistent with calcific tendinopathy. Infraspinatus, subs capularis and teres minor tendons are intact. No significant rotator cuff muscle atrophy or edema. Acromioclavicular Joint: Alignment is intact. No significant joint effusion. Tiny marginal osteophyte s. Glenohumeral Joint: Alignment is intact. No significant joint effusion or synovitis. Labrum: No displaced labral tear or evidence of para labral cysts. Biceps Tendon: The long head of biceps is in normal location within bicipital groove. Bone marrow signal: Negative for fracture or marrow replacement. Other: Small amount of fluid in the subacromial/subdeltoid bursa in close relation to the mineralized focus in the supraspinatus tendon. IMPRESSION: 1. Supraspinatus calcific tendinopathy without significant surrounding tendon edema. Small amount of fluid in the adjacent subacromial/subdeltoid bursa which may be reactive. Negative for rotator cuff t endon tear. 2. Intact long head biceps tendon. [facility], Workstation: [id number], 01/31/2024 9:10 AM
== END | disposition home or self-care (01) ==
LOC: RADMRIMAIN 07:40
DX: M25.711 Osteophyte, right shoulder (principal)

== ENCOUNTER 2024-02-24 14:37 | Emergency (ER) | payer OTHER ==
[2024-02-24 15:00] VITALS: TEMP 98.2
--- NOTE | 2024-02-24 15:32 | XR ---
EXAMINATION TYPE: XR chest 2V DATE OF EXAM: 02/24/2024 3:21 PM COMPARISON: 12/31/2018 CLINICAL INDICATION: Female, 54 years old with history of Chest Pain, TECHNIQUE: XR chest 2V view(s) obtained. FINDINGS: The heart size is normal. The pulmonary vasculature is normal. The lungs are clear. Stable calcified left AP window lymph nodes IMPRESSION: 1. No acute pulmonary process. [facility], , 02/24/2024 3:30 PM
[2024-02-24 16:05] LABS: Basophils # (A) 0.1 k/uL (0-0.2); Basophils % (A) 1 %; Eosinophils # (A) 0.1 k/uL (0-0.7); Eosinophils % (A) 1 %; HCT 40.5 % (34.0-46.0); HGB 13.2 gm/dL (11.4-16.0); Lymphocytes # (A) 1.8 k/uL (1.0-4.8); Lymphocytes % (A) 24 %; MCH 31.5 pg (25.0-35.0); MCHC 32.7 g/dL (31.0-37.0); MCV 96.1 fL (80.0-100.0); Mean Platelet Volume 8.7; Monocytes # (A) 0.4 k/uL (0-1.0); Monocytes % (A) 6 %; Neutrophils # (A) 4.9 k/uL (1.3-7.7); Neutrophils % (A) 66 %; Platelet Count 244 k/uL (150-450); RBC 4.21 m/uL (3.80-5.40); RDW 13.2 % (11.5-15.5); WBC 7.4 k/uL (3.8-10.6)
[2024-02-24 16:16] LABS: ALT 24 U/L (4-34); AST 27 U/L (14-36); African American GFR (CKD) >90 (>60 ml/min/1.73 sqM); Albumin 4.7 g/dL (3.5-5.0); Alkaline Phosphatase 67 U/L (38-126); Anion Gap 8 mmol/L; Blood Urea Nitrogen 25 mg/dL (7-17); Calcium 9.5 mg/dL (8.4-10.2); Carbon Dioxide 26 mmol/L (22-30); Chloride 103 mmol/L (98-107); Glucose 105 mg/dL (74-99); Non-African American GFR(CKD) >90 (>60 ml/min/1.73 sqM); Potassium 3.2 mmol/L (3.5-5.1); Sodium 137 mmol/L (137-145); Total Bilirubin 0.3 mg/dL (0.2-1.3); Total Protein 7.5 g/dL (6.3-8.2)
[2024-02-24 16:18] LABS: Partial Thromboplastin Time 24.1 sec (22.0-30.0); Prothrombin Time 10.7 sec (10.0-12.5)
--- NOTE | 2024-02-24 16:46 | ED ---
Chest Pain HPI - General Chief Complaint: Chest Pain Stated Complaint: Chest pain Time Seen by Provider: 02/24/24 14:50 Source: patient, RN notes reviewed Mode of arrival: ambulatory Limitations: no limitations - History of Present Illness Initial Comments: This is a 54-year-old female history of hypertension and hyperlipidemia presenting to emergency department for complaint of chest pressure that has been relatively consistent approximately 1 hour prior to arrival. She denies radiation of pain, associated shortness of breath, heart palpitations, d izziness, lightheadedness. Denies lower extremity edema or swelling, erythema, recent prolonged travel, recent surgeries. Patient denies of ID, CVA, blood thinner use. Denies prior cardiac testing including echo and/or stress test. - Related Data Home Medications Medication Instructions Recorded Confirmed Dextroamphetamine/Amphetamine 20 mg PO DAILY 07/17/16 12/31/18 [Adderall] Cranberry Fruit Concentrate [Azo 250 mg PO DAILY 12/31/18 12/31/18 Cranberry] Dextroamphetamine/Amphetamine 20 mg PO DAILY@1500 PRN 12/31/18 12/31/18 [Adderall] FLUoxetine HCL [PROzac] 40 mg PO DAILY 12/31/18 12/31/18 lamoTRIgine [LaMICtal] 100 mg PO DAILY 12/31/18 12/31/18 Previous Rx's Medication Instructions Recorded Butalb/Acetaminophen/Caffeine 1 cap PO Q8HR #9 cap 01/03/19 [Fioricet 50-300-40 mg Capsule] Pantoprazole Sodium [Protonix] 40 mg PO BID #60 tablet. 01/03/19 Sucralfate [Carafate] 1 gm PO ACHS #120 tab 01/03/19 Allergies Allergy/AdvReac Type Severity Reaction Status Date / Time codeine AdvReac Nausea & Verified 02/24/24 15:01 Vomiting tramadol AdvReac Nausea & Verified 02/24/24 15:01 Vomiting narcotis AdvReac Nausea & Uncoded 02/24/24 15:01 Vomiting Review of Systems ROS Statement: Those systems with pertinent positive or pertinent negative responses have been documented in the HPI. ROS Other: All systems not noted in ROS Statement are negative. Past Medical History Past Medical History: No Reported History Additional Past Medical History / Comment(s): recurrent UTI's History of Any Multi-Drug Resistant Organisms: None Reported Past Surgical History: Tubal Ligation, Uterine Ablation Past Psychological History: Bipolar Smoking Status: Never smoker Past Alcohol Use History: Rare Past Drug Use History: None Reported General Exam Limitations: no limitations General appearance: alert, in no apparent distress Eye exam: Present: normal appearance, PERRL, EOMI. Absent: scleral icterus, conjunctival injection, periorbital swelling Neck exam: Present: normal inspection. Absent: tenderness, meningismus, lymphadenopathy Respiratory exam: Present: normal lung sounds bilaterally. Absent: respiratory distress, wheezes, rales, rhonchi, stridor Cardiovascular Exam: Present: regular rate, normal rhythm, normal heart sounds. Absent: systolic murmur, diastolic murmur, rubs, gallop, clicks GI/Abdominal exam: Present: soft, normal bowel sounds. Absent: distended, tenderness, guarding, rebound, rigid Extremities exam: Present: normal inspection, full ROM, normal capillary refill. Absent: tenderness, pedal edema, joint swelling, calf tenderness Back exam: Present: normal inspection Skin exam: Present: warm, dry, intact, normal color. 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 sent in by a medical professional or institution ([facility], ACCESS SERVICES LIBRARIAN, urgent care, hospital, or care home...) When possible be specific @ -No Did you speak to anyone other than the patient for history (EMS, parent, family, police, friend...)? What history was obtained from this source @ -No Did you review nursing and triage notes (agree or disagree)? Why? @ -I reviewed and agree with nursing and triage notes Were old charts reviewed (outside hosp., previous admission, EMS record, old EKG, old radiological studies, urgent care reports/EKG's, care home records)? Report findings @ -No old charts were reviewed Differential Diagnosis (chest pain, altered mental status, abdominal pain women, abdominal pain men, vaginal bleeding, weakness, fever, dyspnea, syncope, headache, dizziness, GI bleed, back pain, seizure, CVA, palpatations, mental health, musculoskeletal)? @ -Differential Chest Pain: Stable Angina, Unstable Angina, STEMI, NSTEMI Aortic Dissection, Pneumothorax, Musculoskeletal, Esophageal Spasm GERD, Cholecystitis, Pancreatitis, Zoster, this is not meant to be an all-inclusive list. EKG interpreted by me (3pts min.). @ -EKG completed at 1512 sinus rhythm with a ventricular rate of 77, parable 16 2, QRS 104, QTc 355. X-rays interpreted by me (1pt min.). @ -chest x-ray no acute cardiopulmonary process or disease CT interpreted by me (1pt min.). @ -None done U/S interpreted by me (1pt. min.). @ -None done What testing was considered but not performed or refused? (CT, X-rays, U/S, labs)? Why? @ -None What meds were considered but not given or refused? Why? @ -None Did you discuss the management of the patient with other professionals (professionals i.e. , PA, ACCESS SERVICES LIBRARIAN, lab, RT, psych nurse, pediatric social worker, regional operations director, teacher, svp chief marketing officer, medical case manager)? Give summary @ -No Was smoking cessation discussed for >3mins.? @ -No Was critical care preformed (if so, how long)? @ -No Were there social determinants of health that impacted care today? How? (Homelessness, low income, unemployed, alcoholism, drug addiction, transportation, low edu. Level, literacy, decrease access to med. care, skilled nursing, rehab)? @ -No Was there de-escalation of care discussed even if they declined (Discuss DNR or withdrawal of care, Hospice)? DNR status @ -No What co-morbidities impacted this encounter? (DM, HTN, Smoking, COPD, CAD, Cancer, CVA, ARF, Chemo, Hep., AIDS, mental health diagnosis, sleep apnea, morbid obesity)? @ -None Was patient admitted / discharged? Hospital course, mention meds given and route, prescriptions, significant lab abnormalities, going to OR and other pertinent info. @ -Discharge. 54-year-old female chest pain. Patient had triage orders in place for chest pain including chest x-ray, cardiac enzymes and basic workup. On my evaluation the patient she is resting company no signs acute distress. EKG reveals sinus rhythm. Patient's chest pain is nonreproducible on palpation. Describes this as a pressure. States that the pain has significantly improved after being in the emergency department. Is remarkable for mild hypokalemia of 3.2, repeat troponin both less than 0.012. Discussion with patient at bedside findings from today's workup. Patient's heart score assessing for major adverse cardiac events within the next 6 weeks is low resulting in 3 points. Discussed with patient at bedside option for staying for cardiac observation or following outpatient with primary care provider. Patient is requesting to follow-up outpatient. All questions have been answered at bedside and strict return parameters discussed with the patient she is verbalized understanding. Case discussed with Dr. Faust Undiagnosed new problem with uncertain prognosis? @ -No Drug Therapy requiring intensive monitoring for toxicity (Heparin, Nitro, Insu abbey, Cardizem)? @ -No Were any procedures done? @ -No Diagnosis/symptom? @ -chest pain Acute, or Chronic, or Acute on Chronic? @ -Acute Uncomplicated (without systemic symptoms) or Complicated (systemic symptoms)? @ -Uncomplicated Side effects of treatment? @ -No Exacerbation, Progression, or Severe Exacerbation? @ -No Poses a threat to life or bodily function? How? (Chest pain, USA, ID, pneumonia, PE, COPD, DKA, ARF, appy, cholecystitis, CVA, Diverticulitis, Homicidal, Suicidal, threat to staff... and all critical care pts) @ -No Disposition Clinical Impression: Chest pressure Disposition: HOME SELF-CARE Condition: Stable Instructions (If sedation given, give patient instructions): Chest Pain (ED) Additional Instructions: Please return to the Emergency Department if symptoms worsen or any other concerns. Recommend that you follow-up with your primary care provider within the next 2 to 3 days for further evaluation and testing. Is patient prescribed a controlled substance at d/c from ED?: No Referrals: Brittny Peñaloza MD [Primary Care Provider] - 1-2 days Time of Disposition: 17:39
[2024-02-24] MEDS: POTASSIUM CHLORIDE ER 20 MEQ TAB.ER PO STA (16:57)
[2024-02-24 17:59] VITALS: BP 112/60; PULSE 68; RESP 16
== END 2024-02-24 17:59 | disposition home or self-care (01) ==
LOC: EC 14:37
DX: R07.89 Other chest pain (principal); Z88.5 Allergy status to narcotic agent; Z88.1 Allergy status to other antibiotic agents; Z88.6 Allergy status to analgesic agent
CPT/HCPCS: 36415; 71046; 80053; 83735; 84484; 85025; 85610; 85730; 93005; 99285

== ENCOUNTER → 2024-06-12 | Outpatient (CLI) | payer OTHER ==
--- NOTE | 2024-06-12 07:48 | USB ---
Reason for Exam: Additional evaluation requested from abnormal screening. Patient History: Menarche at age 12. First Full-Term at age 21. Postmenopausal. Patient has history of breast feeding. Patient used Hormonal Contraceptives for 8 years. Risk Values: Edna 5 year model risk: 1.1%. NCI Lifetime model risk: 7.4%. Technique: Method: Targeted. Prior Study Comparison: 04/21/2022 Bilateral MG 3D screening mammo w/cad, [facility]. 05/03/2023 Bilateral MG 3D screening mammo w/cad, [facility]. 06/07/2024 Bilateral MG 3D screening mammo w/cad, [facility]. Findings: The area of palpable concern of the right breast, the axilla of the right breast and the retroareolar of the right breast were scanned. Technique utilized:US breast workup limited RT Image; Ultrasound imaging of: Area of concern, retroareolar region and axilla. No evidence for organizing fluid collection or mass. No finding to correlate with palpable abnormality. Overall Assessment: Negative, BI-RAD 1 Management: Screening Mammogram of both breasts in 1 year. A clinical breast exam by your physician is recommended on an annual basis and results should be correlated with mammographic findings. This exam should not preclude additional follow-up of suspicious palpable abnormalities. Results were given to the patient verbally at the time of exam. [facility], , 06/12/2024 7:44 AM. Electronically signed and approved by: Ceasar Kim DO
== END | disposition home or self-care (01) ==
LOC: RADUSWWP 07:25
PROVIDERS: ATTEND Family Medicine
DX: R92.8 Other abnormal and inconclusive findings on diagnostic imaging of breast (principal); Z78.0 Asymptomatic menopausal state; Z92.0 Personal history of contraception